=== PATIENT | female | born 1955 | race Caucasian/White ===

== ENCOUNTER → 2016-05-02 | Outpatient (CLI) | payer OTHER | LOC: BMCIMAGING 11:13 | PROVIDERS: ATTEND Family Medicine | DX: M79.671 Pain in right foot (principal); M79.661 Pain in right lower leg ==

== ENCOUNTER → 2016-05-26 | Outpatient (CLI) | payer OTHER | LOC: BMCIMAGING 08:29 | PROVIDERS: ATTEND Podiatrist Foot & Ankle Surgery | DX: S92.511D Displaced fracture of proximal phalanx of right lesser toe(s), subsequent encounter for fracture with routine healing (principal) ==

== ENCOUNTER → 2016-06-20 | Outpatient (CLI) | payer OTHER | LOC: BMCIMAGING 15:14 | PROVIDERS: ATTEND Podiatrist Foot & Ankle Surgery | DX: S92.111A Displaced fracture of neck of right talus, initial encounter for closed fracture (principal); S92.511A Displaced fracture of proximal phalanx of right lesser toe(s), initial encounter for closed fracture ==

== ENCOUNTER → 2016-11-23 | Outpatient (CLI) | payer OTHER | LOC: BMCIMAGING 08:26 | PROVIDERS: ATTEND Internal Medicine | DX: Z12.31 Encounter for screening mammogram for malignant neoplasm of breast (principal); Z80.3 Family history of malignant neoplasm of breast | CPT/HCPCS: G0202 ==

== ENCOUNTER → 2016-12-01 | Outpatient (CLI) | payer OTHER | LOC: BMCIMAGING 10:54 | PROVIDERS: ATTEND Internal Medicine | DX: R92.8 Other abnormal and inconclusive findings on diagnostic imaging of breast (principal) | CPT/HCPCS: G0204 ==